=== PATIENT | female | born 1965 | race Hispanic/Latino ===

== ENCOUNTER 2019-08-28 14:47 | Outpatient (CLI) | payer BC ==
--- NOTE | 2019-08-28 16:30 | ULT ---
TRANSABDOMINAL AND TRANSVAGINAL PELVIC ULTRASOUND WITH HOLLINS SCALE, COLOR FLOW AND SPECTRAL DOPPLER IM AGIN08/28/19 HISTORY: 53-year-old female with menorrhagia. Postmenopausal bleeding. FINDINGS: The uterus measures 7.4 x 4.1 x 3.9 cm without focal mass or endometrial fluid. The endometrium measu res 1.2 cm in thickness. The right ovary measures 2.3 x 1.7 x 1.0 cm and the left ovary measures 1.7 x 1.7 x 1.1 cm. Flow is d emonstrated to both ovaries. No adnexal mass or free fluid in the cul-de-sac is seen. IMPRESSION: Endometrial thickness measures 12 mm. POS: [id number]
== END 2019-08-28 14:48 | disposition home or self-care (01) ==
LOC: BICULT 14:47
PROVIDERS: ATTEND Family Medicine
DX: N92.4 Excessive bleeding in the premenopausal period (principal); R93.89 Abnormal findings on diagnostic imaging of other specified body structures
CPT/HCPCS: 76856